=== PATIENT | male | born 1950 | race African-American/Black ===

== ENCOUNTER 2020-06-03 14:02 | Emergency (ER) | payer OTHER ==
[~2020-06-03] VITALS: Ht 182.9 cm; Wt 72.6 kg
[~2020-06-03 14:02] MED LIST: COZAAR 50 MG TA50 M1 PO; LOSARTAN-HCTZ1 EAC2 PO; MULTIVITAMINS1 EAC7 PO
[2020-06-03 16:10] LABS: HEMATOCRIT 40.4 % (42.0-52.0); MCHC 32.2 g/dL (28.0-37.0); MCV 86.9 fL (80.0-100.0); RBC 4.64 mil/uL (4.50-6.00); RDW 13.7 % (10.5-14.5); WBC 4.7 thou/uL (4.0-11.0)
[2020-06-03 16:16] LABS: CALCIUM 9.1 mg/dL (8.5-10.1); CREATININE 0.9 mg/dL (0.7-1.3); POTASSIUM 4.2 mmol/L (3.5-5.1)
[2020-06-03 16:22] LABS: ALBUMIN 3.5 g/dL (3.4-5.0); TOTAL BILIRUBIN 0.6 mg/dL (0.2-1.0); TOTAL PROTEIN 7.6 g/dL (6.4-8.2)
[2020-06-03 16:24] LABS: URINE BILIRUBIN NEGATIVE (Negative); URINE BLOOD NEGATIVE (Negative); URINE CLARITY CLEAR; URINE COLOR YELLOW; URINE GLUCOSE-RANDOM* NEGATIVE (Negative); URINE KETONES 1+ (Negative); URINE LEUKOCYTES-REFLEX NEGATIVE (Negative); URINE NITRITE-REFLEX NEGATIVE (Negative); URINE PROTEIN (DIPSTICK) NEGATIVE (Negative); URINE SPECIFIC GRAVITY 1.025 (1.005-1.035)
[2020-06-03] MEDS ORDERED: ZOFRAN ODT4 MG PO (17:43)
[2020-06-03] MEDS ORDERED: ROBAXIN 750 MG750 MG PO (17:43)
[2020-06-03 18:11] VITALS: BP 136/74
== END 2020-06-03 18:14 | disposition home or self-care (01) ==
LOC: ER 14:02
PROVIDERS: Nurse Practitioner Family
DX: M54.5 Low back pain (principal); R11.0 Nausea; K62.89 Other specified diseases of anus and rectum; I10 Essential (primary) hypertension; Z79.899 Other long term (current) drug therapy